=== PATIENT | male | born 1970 | race Caucasian/White ===

== ENCOUNTER → 2020-07-22 02:34 | Outpatient (CLI) | payer OTHER, SELFPAY ==
[2020-07-22 18:21] LABS: SARS-CoV-2 RNA PCR Negative
== END ==
PROVIDERS: PCP Family Medicine; Visit Provider Internal Medicine Gastroenterology
DX: Z01.812 Encounter for preprocedural laboratory examination (principal); Z20.822 Contact with and (suspected) exposure to COVID-19
CPT/HCPCS: C9803; U0003; U0005

== ENCOUNTER 2020-07-25 01:38 | Day surgery (SDC) | payer OTHER, SELFPAY ==
[2020-07-17 12:11] VITALS: BMI 27.6
[2020-07-25 12:17] VITALS: BP 134/85; PULSE 89; RESP 18; TEMP 36.3; O2SAT 100
[2020-07-25] MEDS: LACTATED RINGERS 1,000 ML 150 ML IV CONT (12:21)
--- NOTE | 2020-07-25 13:07 | P.PNAN_ITS ---
Anes - Initial Pre Proc Eval Procedure: Operation Date: 07/25/20 13:30 Proposed Procedures p Esophagogastroduodenoscopy & Screening Colonoscopy - Jose E Whitehead MD Date/Time: 07/25/20 13:07 Surgeon: Jose E Dugan MD Pre Op Diagnosis: Nausea, Abdominal Pain, Neoplasm Screening Patient Data Age: 50 Gender: M Height: 5 ft 9 in Weight: 88 kg Last Vital Signs Temp 97.3 F L 07/25/20 12:17 Pulse 89 07/25/20 12:17 Resp 18 07/25/20 12:17 BP 134/85 07/25/20 12:17 Pulse Ox 100 07/25/20 12:17 Allergies Allergy/AdvReac Type Severity Reaction Status Date / Time No Known Allergies Allergy Verified 07/08/20 12:48 Home Medications Medication Instructions Recorded Confirmed Type alprazolam 0.25 mg tablet 0.25 mg PO TID PRN #90 tablet 05/21/20 07/17/20 Rx omeprazole 40 mg capsule,delayed 40 mg PO DAILY #90 cap 05/21/20 07/17/20 Rx release dicyclomine 20 mg tablet 20 mg PO TID #90 tablet 06/28/20 07/17/20 Rx atorvastatin 10 mg PO DAILY 07/17/20 07/17/20 History escitalopram oxalate 10 mg PO DAILY 07/17/20 07/17/20 History Patient hx anesthesia problems: none Family hx anesthesia problems: none PMFSH Past Medical History Medical History Anxiety Gastroesophageal reflux disease Mixed hyperlipidemia Social History Social History (Updated 07/08/20 @ 12:49 by Rozina Rosas CMA) Smoking status: Never smoker Second hand tobacco smoke exposure: No Alcohol intake: current Drinks per week: 10 Substance use: never Substance use type: does not use Living arrangements: with family Gender identity (if verbalized by the patient): Male Spiritual care concerns: No Anes - Eval Final PreProcedure Day of Procedure 07/25/20 13:07 Patient weight: normal Heart: regular rate and rhythm Lungs: clear to auscultation Airway: Mallampati scale class II Neurological: alert and oriented Last oral intake: >/= 8 hours ASA classification: II Emergent: no Anesthetic plan: proceed Anesthesia type and monitoring: general GIVS and standard monitoring Informed Consent: The patient's anesthetic plan and its attendant risks and benefits were discussed with the patient/family/POA. Questions were solicited and answers provided to the satisfaction of the patient/family/POA.
--- NOTE | 2020-07-25 13:16 | WPDHPUPDATE1 ---
History and Physical Update Update Date/Time: 07/25/20 13:16 History and Physical has been reviewed, including an updated exam of the patient. There are NO changes in the patient's condition. Risks, benefits, and alternatives have been discussed and questions answered. Patient agrees to proceed with procedure.
[2020-07-25] MEDS: BENZOCAINE (*SP) 60 ML SPRAY CAN (HURRICAINE) 1 SPRAY MUCOUS MEM (13:24)
[2020-07-25 13:46] VITALS: BP 102/74; PULSE 92; RESP 28; O2SAT 98
[2020-07-25 13:56] VITALS: BP 108/75; PULSE 85; RESP 16; O2SAT 98
[2020-07-25 14:06] VITALS: BP 116/79; PULSE 79; RESP 20; O2SAT 100
== END 2020-07-25 14:18 | disposition home or self-care (01) ==
PROVIDERS: PCP Family Medicine; Visit Provider Internal Medicine Gastroenterology
PROC: 0DJ08ZZ Inspection of Upper Intestinal Tract, Via Natural or Artificial Opening Endoscopic (ICD-10-PCS; CPT 43235; principal; 2020-07-25 13:30)
DX: Z12.11 Encounter for screening for malignant neoplasm of colon (principal); D12.2 Benign neoplasm of ascending colon; D12.3 Benign neoplasm of transverse colon; K63.5 Polyp of colon; K64.8 Other hemorrhoids; K21.9 Gastro-esophageal reflux disease without esophagitis; R11.0 Nausea; E78.2 Mixed hyperlipidemia; F41.9 Anxiety disorder, unspecified
CPT/HCPCS: 45380; 43239; 88305; C9803; J2704; J7120; U0003; U0005

== ENCOUNTER 2023-06-08 18:17 | Emergency (ER) | payer OTHER, SELFPAY ==
--- NOTE | 2023-06-08 18:19 | ED.URI ---
HPI - URI/Sore Throat General Chief Complaint: Upper Respiratory Infection Stated Complaint: Cold symptoms Time Seen by Provider: 06/08/23 18:19 Source: patient Mode of arrival: ambulatory Limitations: no limitations History of Present Illness HPI Narrative: Tino is a 52-year-old male patient presenting to the clinic today with complaints of cough, sore throat, nasal congestion, left ear pain for 2-3 days. No fever or chills. Denies any chest pain or shortness of breath. MD elicited complaint: sore throat and nasal congestion Related Data Allergies Allergy/AdvReac Type Severity Reaction Status Date / Time No Known Allergies Allergy Verified 06/08/23 18:23 Review of Systems Review of Systems: Pertinent positives per HPI. Patient denies any fever, rash, headache, visual changes, dizziness, shortness of breath, chest pain, palpitations, nausea, vomiting, diarrhea, constipation, abdominal pain, or any urinary issues. PMFSH Past Medical History Medical History Anxiety Gastroesophageal reflux disease Mixed hyperlipidemia Social History Social History Smoking status: Never smoker Second hand tobacco smoke exposure: No Alcohol intake: current Drinks per week: 14 Substance use: never Substance use type: does not use Living arrangements: with family Occupation/Education: occupation Gender identity (if verbalized by the patient): Male Spiritual care concerns: No Comments At the time of my signature, I reviewed and agree with the nursing past medical, surgical, social, and family history. There is no relevant family history pertinent to the patient complaint. Exam Narrative: General: Well-developed, well nourished, in no apparent distress Head: Normocephalic, atraumatic Eyes: Pupils equally round and reactive to light bilaterally, EOM intact, sclera and conjunctive clear, no discharge, lids normal Ears: TMs intact and clear, ear canals clear, no drainage, grossly hearing normal. Nose: Nares patent, clear nasal discharge, no inflammation, no sinus tenderness. Mouth: Oral pharynx red without lesions or masses, good dentition, MMM. Neck: Supple, trachea midline, no enlargement of anterior or posterior cervical nodes, no thyroid masses or goiter palpable. Cardio: Regular rate and rhythm, s1 and s2 normal, no murmur appreciated. Resp: Clear to auscultation bilaterally, no rhonchi, rales, wheezing or rubs Course Course Emergency Course: Portions of this record may have been created with voice recognition software. Level of Care: Express Care Visit Vital Signs Vital signs: Vital signs reviewed MDM - URI/Sore Throat MDM Narrative Medical decision making narrative: At the time of visit patient is resting comfortably on the exam table. Patient appears to be nontoxic. COVID, flu, and strep test were performed and was negative. We will send strep for culture. Will send patient prescription for prednisone to help with inflammation in the throat and congestion. Supportive measures were discussed with the patient and they voiced understanding discharge instructions and agrees to treatment plan. Return precautions reviewed Differential Diagnosis Differential diagnosis: Likely upper respiratory infection, otitis media, sinusitis, viral infection, bronchitis, influenza, pharyngitis and other (COVID) Discharge Plan Discharge Clinical Impression: Acute viral syndrome URI (upper respiratory infection) Qualifiers: URI type: unspecified URI Qualified Code(s): J06.9 - Acute upper respiratory infection, unspecified Pharyngitis Qualifiers: Pharyngitis/tonsillitis etiology: unspecified etiology Qualified Code(s): J02.9 - Acute pharyngitis, unspecified Patient Disposition: Home, Self-Care Condition: Stable Instructions: Antibiotic Form, Pharyngitis (ED), Upper Respirat
[2023-06-08 18:22] VITALS: BP 143/91; PULSE 109; RESP 16; TEMP 36.6; O2SAT 100
[2023-06-08 18:24] VITALS: BP 143/91; PULSE 109; RESP 16; TEMP 36.6; O2SAT 100
== END 2023-06-08 18:53 | disposition home or self-care (01) ==
PROVIDERS: Emergency Provider Nurse Practitioner Family; PCP Family Medicine
DX: B34.9 Viral infection, unspecified (principal); J06.9 Acute upper respiratory infection, unspecified; J02.9 Acute pharyngitis, unspecified; Z20.822 Contact with and (suspected) exposure to COVID-19; K21.9 Gastro-esophageal reflux disease without esophagitis; E78.2 Mixed hyperlipidemia
CPT/HCPCS: 87081; 87426; 87804; 87880; 99213; G0463